=== PATIENT | female | born 1940 | race Two or more races ===

== ENCOUNTER 2020-05-17 12:10 | Emergency (ER) | payer MEDICARE ==
[~2020-05-17] VITALS: Ht 160 cm; Wt 59.1 kg
[2020-05-17 12:10] VITALS: BP 162/72
[2020-05-17] MEDS ORDERED: LISI-662 PO (12:12)
[2020-05-17] MEDS ORDERED: LEVO75 PO (12:12)
== END 2020-05-17 12:39 | disposition home or self-care (01) ==
LOC: EMS 12:11
DX: I10 Essential (primary) hypertension (principal); Z79.899 Other long term (current) drug therapy